=== PATIENT | male | born 1990 | race Caucasian/White ===

== ENCOUNTER 2021-02-01 21:45 | Emergency (ER) | payer OTHER ==
--- NOTE | 2021-02-01 21:59 | EDM.PDOC ---
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 He states that there was immediate pain but he was able to walk home and the pain seemed to dissipate and he checked the left foot and noted that there were no open wounds, no swelling and no obvious deformity. He continued to work and was able to walk around with minimal discomfort for the rest of his work today. After getting home from work, he noted some increased pain in the top of his left foot that felt like pins and needles with any kind of palpation when he was walking around at home with certain twisting movements he would have a pain that went up to a 9-10/10. This was a sharp pain. It seemed to be more on the distal mid foot. The pain at rest is about a 5/10. It is worse with movement and with palpation. There were no other injuries. He has normal sensation to his toes. This occurred at 2 PM today. There are no other associated signs or symptoms. There are no other modifying factors. 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.) Review of Systems - Review of Systems Review Of Systems: See Below Constitutional: Reports: No Symptoms Eyes: Reports: No Symptoms Ears: Reports: No Symptoms Nose: Reports: No Symptoms Mouth/Throat: Reports: No Symptoms Respiratory: Reports: No Symptoms Cardiovascular: Reports: No Symptoms GI/Abdominal: Reports: No Symptoms Genitourinary: Reports: No Symptoms Musculoskeletal: Reports: Foot Pain (Left foot pain) Skin: Reports: No Symptoms Neurological: Reports: No Symptoms Psychiatric: Reports: No Symptoms ED EXAM, GENERAL - Physical Exam Exam: See Below Exam Limited By: No Limitations General Appearance: Alert, WD/WN, Moderate Distress (Appears in some pain. He is nontoxic.) Eye Exam: Bilateral Eye: EOMI, Normal Inspection Ears: Normal External Exam, Hearing Grossly Normal Ear Exam: Bilateral Ear: Auricle Normal Nose: Normal Inspection, Normal Mucosa, No Blood Throat/Mouth: Normal Inspection, Normal Lips, Normal Oropharynx, Normal Voice, No Airway Compromise Head: Atraumatic, Normocephalic Neck: Normal Inspection, Supple, Non-Tender, Full Range of Motion Respiratory/Chest: No Respiratory Distress, Lungs Clear, Normal Breath Sounds, No Accessory Muscle Use, Chest Non-Tender Cardiovascular: Normal Peripheral Pulses, Regular Rate, Rhythm, No Murmur Peripheral Pulses: 2+: Radial (L), Radial (R), Dorsalis Pedis (L) GI/Abdominal: Normal Bowel Sounds, Soft, Non-Tender, No Mass Back Exam: Normal Inspection, Full Range of Motion Extremities: Normal Range of Motion, Normal Capillary Refill, Other (Tenderness and pain to palpation over the top of the left foot at the mid shaft of the second and third metatarsals. There is no tenderness to palpation over the tarsal areas or over the Lisfranc joint area.) Neurological: Alert, Oriented, CN II-XII Intact, Normal Cognition, No Motor/Sensory Deficits Psychiatric: Normal Affect Skin Exam: Warm, Dry, Intact, Normal Color, No Rash Course - Vital Signs Last Recorded V/S: Last Vital Signs Temp 36.4 C 02/01/21 21:50 Pulse 82 02/01/21 21:50 Resp 18 02/01/21 21:50 BP 152/70 H 02/01/21 21:50 Pulse Ox 100 02/01/21 21:50 - Orders/Labs/Meds Orders: Active Orders 24 hr Category Date Time Status Foot Comp Min 3V Lt [CR] Stat Exams 02/01/21 21:59 Taken - Radiology Interpretation Free Text/Narrative:: X-ray of the left foot shows no definite fracture. - Re-Assessments/Exams Free Text/Narrative Re-Assessment/Exam: 02/01/21 23:00: Patient with maximal point of tenderness along the mid shaft of the second/third metatarsals of the left foot. Areas no crepitus or bony deformity here. He has no tenderness or deformity along the drink area. There is no tenderness or deformity in the tarsal bones area. There are no open wounds. There is good perfusion distally. The x-ray of his left foot showed no definite fracture. I will have the nursing staff place the patient in a postop shoe and he has crutches at home and he should have nonweightbearing on his 2 days. No work for the next 2 days. He can take Aleve or Tylenol for the pain as needed. Precautions and reasons for return to the emergency department were discussed with the patient and with his nephew and other while the patient was in the emergency department were detailed in the patient's discharge instructions. Departure - Departure Time of Disposition: 23:10 Disposition: Home, Self-Care 01 Condition: Good Clinical Impression: Contusion of left foot, initial encounter, Crushing injury of left foot, initial encounter - Discharge Information Instructions: Foot Contusion, [id number], Crush Injury of the Foot, [id number] Referrals: PCP,Unknown [Ordering Only Provider] - Forms: ED Return to Work/School Form Additional Instructions: The x-ray of your left foot showed no definite fracture. You appear to have a bruise to the right. The radiologist will over read the x-ray tomorrow and if a fracture is seen, we will call you. Use the postop shoe and use crutches with no weightbearing on your left foot for the next 2 days. You may return to work in 2 days but with light duty until 02/08/2021. You can take Aleve and Tylenol as needed for pain. Apply ice packs intermittently to the left foot for the next 2 days. Elevate your left foot as often as possible for the next 2 days. Follow-up with your primary provider or with a clinic if you aren't having worsening/persisting pain. Back to the emergency department for marked increase in pain, redness or any other signs of infection or any other concerning signs or symptoms. Sepsis Event Note (ED) - Focused Exam Vital Signs: Vital Signs Temp Pulse Resp BP Pulse Ox 02/01/21 21:50 36.4 C 82 18 152/70 H 100 - My Orders Last 24 Hours: My Active Orders 02/01/21 21:59 Foot Comp Min 3V Lt [CR] Stat - Assessment/Plan Last 24 Hours: My Active Orders 02/01/21 21:59 Foot Comp Min 3V Lt [CR] Stat
--- NOTE | 2021-02-02 09:44 | CR ---
INDICATION: Dropped forklift arm on left foot. LEFT FOOT: Three views of the left foot were obtained 02/01/21 - no comparison. There appears to be soft tissue swelling overlying the mid to distal metatarsal area along the dorsum of the foot. An acute fracture or dislocation or other significant bone or joint abnormality was not identified. If symptoms persist - if occult fracture site is suspected clinically, reexamination in 10 to 14 days may be helpful. MTDD
== END 2021-02-01 23:18 | disposition home or self-care (01) ==
LOC: FB.ED 21:45
DX: S97.82XA Crushing injury of left foot, initial encounter (principal); Z88.0 Allergy status to penicillin; Z72.0 Tobacco use; W20.8XXA Other cause of strike by thrown, projected or falling object, initial encounter
CPT/HCPCS: 73630-LT; 99283

== ENCOUNTER 2021-02-22 10:13 | Emergency (ER) | payer OTHER ==
--- NOTE | 2021-02-22 12:21 | EDM.PDOC ---
ED HPI GENERAL MEDICAL PROBLEM - General Chief Complaint: General Stated Complaint: COVID Time Seen by Provider: 02/22/21 12:00 Source of Information: Reports: Patient History Limitations: Reports: No Limitations - History of Present Illness INITIAL COMMENTS - FREE TEXT/NARRATIVE: c/o URI sxs nasal congestion x 1w works for [employer] near [place], missed worked 3d last wk has had rhinorrhea, PND, nonproductive cough no h/o COVID, no COVID vax lives with gfrienchina and her 2 children, gfriend and oldest stepson have had COVID vax no f/c/d has had slight CHAPPELL also malaise, occasional loose stool, occasional N Treatments 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, hx R labrum tear- has chronic R shoulder pain Neurological History: Reports: Concussion Psychiatric History: Reports: Anxiety, Depression, Psych Hospitalization(s), Suicide Attempt - Past Surgical History HEENT Surgical History: Reports: Oral Surgery ([place] teeth extraction) Social & Family History - Family History Family Medical History: No Pertinent Family History - Tobacco Use Tobacco Use Status *Q: Current Every Day Tobacco User Years of Tobacco use: 10 Packs/Tins Daily: 1 - Caffeine Use Caffeine Use: Reports: Coffee - Recreational Drug Use Recreational Drug Use: No - Living Situation & Occupation Living situation: Reports: 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.) ED ROS GENERAL - Review of Systems Review Of Systems: See Below Constitutional: Reports: No Symptoms HEENT: Reports: Rhinitis Respiratory: Reports: No Symptoms Cardiovascular: Reports: No Symptoms Endocrine: Reports: No Symptoms GI/Abdominal: Reports: Diarrhea, Nausea, Other (ate BLT for supper last night, no bfast) : Reports: No Symptoms Musculoskeletal: Reports: No Symptoms Skin: Reports: No Symptoms Neurological: Reports: Headache Psychiatric: Reports: No Symptoms Hematologic/Lymphatic: Reports: No Symptoms Immunologic: Reports: No Symptoms ED EXAM, GENERAL - Physical Exam Exam: See Below Exam Limited By: No Limitations General Appearance: Alert, WD/WN, No Apparent Distress, Other (ambulating, alert, doing well) Ears: Hearing Grossly Normal Nose: Normal Inspection, Other (mild swell b/l, sinus nontender) Throat/Mouth: Normal Inspection, Normal Lips, Normal Teeth, Normal Oropharynx, Normal Voice, No Airway Compromise Head: Atraumatic, Normocephalic Neck: Normal Inspection, Supple, Non-Tender, Full Range of Motion. No: Lymphadenopathy (R), Lymphadenopathy (L) Respiratory/Chest: No Respiratory Distress, Lungs Clear, Normal Breath Sounds, Chest Non-Tender, Other (no wheeze with cough) Cardiovascular: Regular Rate, Rhythm, No Edema, No Murmur GI/Abdominal: Soft, Non-Tender, No Distention Back Exam: Normal Inspection, Full Range of Motion, NT Extremities: Normal Inspection, Normal Range of Motion, Non-Tender, No Pedal Edema Neurological: Alert, Oriented, CN II-XII Intact, Normal Cognition, No Motor/Sensory Deficits Psychiatric: Normal Affect, Normal Mood Skin Exam: Warm, Dry, Intact, Normal Color, No Rash Lymphatic: No Adenopathy Course - Vital Signs Last Recorded V/S: Last Vital Signs Temp 36.5 C 02/22/21 10:13 Pulse 80 02/22/21 10:13 Resp 20 02/22/21 10:13 BP 143/92 H 02/22/21 10:13 Pulse Ox 95 02/22/21 10:13 - Orders/Labs/Meds Labs: Laboratory Tests 02/22/21 Range/Units 10:46 SARS-CoV-2 RNA ([facility]ASON) Negative (NEGATIVE) Departure - Departure Time of Disposition: 12:16 Disposition: Home, Self-Care 01 Condition: Good Clinical Impression: Acute sinusitis - Discharge Information *PRESCRIPTION DRUG MONITORING PROGRAM REVIEWED*: Not Applicable *COPY OF PRESCRIPTION DRUG MONITORING REPORT IN PATIENT FAUSTO: Not Applicable Prescriptions: Azithromycin 250 mg PO ASDIRECTED #6 tablet Ondansetron [Ondansetron ODT] 4 mg PO Q6H PRN #6 tab.rapdis PRN Reason: Nausea predniSONE 20 mg PO ASDIRECTED #9 tab Referrals: PCP,None [Primary Care Provider] - Forms: ED Department Discharge, ED Return to Work/School Form Additional Instructions: For infection, take azithromycin 250 mg 2 tabs today, the 1 tab daily for 4 days. To open up nasal passages and decrease drainage, take prednisone 20 mg 2 tabs daily for 2 days, then 1 tab daily for 5 days. For nausea, take ondansetron ODT 4 mg 1 tab under the tongue every 6 hours as needed. May return to work tomorrow if feeling better. See your doctor in 4 days if you are not at least 90% better. Sepsis Event Note (ED) - Evaluation Sepsis Screening Result: No Definite Risk - Focused Exam Vital Signs: Vital Signs Temp Pulse Resp BP Pulse Ox 02/22/21 10:13 36.5 C 80 20 143/92 H 95
== END 2021-02-22 12:46 | disposition home or self-care (01) ==
LOC: FB.ED 10:13
DX: J32.9 Chronic sinusitis, unspecified (principal); Z88.0 Allergy status to penicillin; Z88.1 Allergy status to other antibiotic agents; Z72.0 Tobacco use; Z20.822 Contact with and (suspected) exposure to COVID-19
CPT/HCPCS: 99283; U0002